=== PATIENT | female | born 1990 | race Caucasian/White ===

== ENCOUNTER 2023-04-18 11:00 | Emergency (ER) | payer OTHER ==
[2023-04-18] MEDS ORDERED: DIPHTH,PERTUSS(ACELL),TET 0.5 ML DISP.SYRIN IM ONE ×2 (11:44→11:48)
[2023-04-18 12:13] VITALS: BP 99/68; PULSE 61; RESP 18; TEMP 97.5; BMI 20.1
== END 2023-04-18 12:05 | disposition home or self-care (01) ==
LOC: FER 11:00
PROC: 0HQHXZZ Repair Right Upper Leg Skin, External Approach (ICD-10-PCS; principal; 2023-04-18)
PROC: 3E0234Z Introduction of Serum, Toxoid and Vaccine into Muscle, Percutaneous Approach (ICD-10-PCS; 2023-04-18)
DX: S81.811A Laceration without foreign body, right lower leg, initial encounter (principal); W25.XXXA Contact with sharp glass, initial encounter; Y92.9 Unspecified place or not applicable
CPT/HCPCS: 90715; 99283-25

== ENCOUNTER 2023-04-29 19:04 | Emergency (ER) | payer OTHER ==
[2023-04-29 19:34] VITALS: BP 109/69; PULSE 69; RESP 18; TEMP 98.3; BMI 20.1
== END 2023-04-29 20:06 | disposition home or self-care (01) ==
LOC: FER 19:04
DX: Z48.02 Encounter for removal of sutures (principal)
CPT/HCPCS: 99282-25